=== PATIENT | female | born 1945 | race Caucasian/White ===

== ENCOUNTER 2024-04-02 16:46 | Emergency (ER) | payer OTHER ==
[~2024-04-02] VITALS: Ht 160 cm; Wt 113.4 kg
[~2024-04-02 16:46] MED LIST: ACET325 PO; ALBU90OI INH; ALLO100 PO; ASPI81CH PO; ATOR80 PO; DOCUZEN 8.6-501 EACH PO; ENTRESTO 49 MG1 EACH PO; FURO20 PO; GABA300 PO; LEVOTHYROXINE PO; MIRALAX17 GM PO; OMEP20ER PO; SERT50 PO; XARELTO20 MG PO
[2024-04-02 17:17] LABS: BASOPHILS ABSOLUTE AUTO 0.06 K/mm3 (0.00-0.23); BASOPHILS PERCENT AUTO 1 % (0-2); EOSINOPHILS ABSOLUTE AUTO 0.14 K/mm3 (0.00-0.68); EOSINOPHILS PERCENT AUTO 3 % (0-6); Hematocrit 44.7 % (33.0-51.0); Hemoglobin 14.5 g/dL (11.5-16.0); IMMATURE GRAN ABSOLUTE AUTO 0.01 K/mm3 (0.00-0.10); IMMATURE GRAN PERCENT AUTO 0 % (0-1); LYMPHOCYTES ABSOLUTE AUTO 1.49 K/mm3 (0.84-5.20); LYMPHOCYTES PERCENT AUTO 27 % (21-46); MONOCYTES ABSOLUTE AUTO 0.54 K/mm3 (0.16-1.47); MONOCYTES PERCENT AUTO 10 % (4-13); Mean Corpuscular HGB 27.4 pg (26.0-34.0); Mean Corpuscular HGB Conc 32.4 g/dL (31.5-36.5); Mean Corpuscular Volume 84 fL (80-100); Mean Platelet Volume 9.4 fL (9.1-12.4); NEUTROPHILS ABSOLUTE AUTO 3.29 K/mm3 (1.96-9.15); NEUTROPHILS PERCENT AUTO 60 % (41-73); Platelet Count 274 K/mm3 (150-400); RDW Coefficient Variation 15.2 % (11.7-14.2); RDW Standard Deviation 46.5 fL (35.1-46.3); White Blood Cell Count 5.53 K/mm3 (4.00-11.30)
[2024-04-02 17:44] LABS: Magnesium, Blood 1.9 mg/dL (1.6-2.4)
[2024-04-02] MEDS ORDERED: METOPROLOL SUCC25 MG PO (17:44)
[2024-04-02] MEDS ORDERED: METOPROLOL TART25 MG PO (17:44)
[2024-04-02 17:47] LABS: Albumin, Blood 3.6 g/dL (3.4-5.0); Albumin/Globulin Ratio 0.8 (0.8-1.8); Bilirubin, Total 0.7 mg/dL (0.1-1.0); Bun/Creatinine Ratio 20.1 (12.0-20.0); Creatinine, Blood 0.99 mg/dL (0.40-1.00); Globulin, Blood 4.6 g/dL (2.2-4.0); Potassium, Blood 4.4 mmol/L (3.5-5.5); Thyroid Stimulating Hormone 21.9 uIU/mL (0.360-4.800); Total Protein, Blood 8.2 g/dL (6.4-8.2)
[2024-04-02 18:25] LABS: Free Thyroxine 1.09 ng/dL (0.70-1.60)
[2024-04-02 18:27] LABS: Triiodothyronine, Free 1.8 pg/mL (2.18-3.98)
[2024-04-02] MEDS ORDERED: Metoprolol Tartrate 25 MG Tab PO ONE (19:05)
[2024-04-02] MEDS ORDERED: Metoprolol Tartrate 1 MG/ML 5 ML VIAL IV ONE ×2 (19:05→20:15)
[2024-04-02] MEDS ORDERED: Furosemide 10 MG / ML 2ML Vial IV ONE (20:15)
[2024-04-02] MEDS ORDERED: Digoxin 0.25 MG/ML 2ML Amp IV ONE (21:55)
[2024-04-03 00:15] VITALS: BP 104/61
== END 2024-04-03 00:23 | disposition short-term general hospital (02) ==
LOC: ER 16:46
PROVIDERS: Physician Assistant; Student in an Organized Health Care Education/Training Program
DX: I47.19 Other supraventricular tachycardia (principal); I49.5 Sick sinus syndrome; I44.30 Unspecified atrioventricular block; E78.5 Hyperlipidemia, unspecified; E03.9 Hypothyroidism, unspecified; G47.33 Obstructive sleep apnea (adult) (pediatric); I12.9 Hypertensive chronic kidney disease with stage 1 through stage 4 chronic kidney disease, or unspecified chronic kidney disease; N18.30 Chronic kidney disease, stage 3 unspecified; Z87.891 Personal history of nicotine dependence; Z79.899 Other long term (current) drug therapy; Z88.0 Allergy status to penicillin; Z88.2 Allergy status to sulfonamides; Z88.1 Allergy status to other antibiotic agents
CPT/HCPCS: 71046; 80053; 83735; 83880; 84439; 84443; 84481; 84484; 85025; 93005; 93010; 96374; 96375; 96376; 99285-25; A9270; J1940

== ENCOUNTER 2024-04-18 16:16 | Emergency (ER) | payer OTHER ==
[~2024-04-18] VITALS: Ht 160 cm; Wt 113.4 kg
[~2024-04-18 16:16] MED LIST changes: +METOPROLOL SUCC25 MG PO; +METOPROLOL TART25 MG PO
[2024-04-18 17:08] LABS: BASOPHILS ABSOLUTE AUTO 0.05 K/mm3 (0.00-0.23); BASOPHILS PERCENT AUTO 1 % (0-2); EOSINOPHILS ABSOLUTE AUTO 0.17 K/mm3 (0.00-0.68); EOSINOPHILS PERCENT AUTO 3 % (0-6); Hematocrit 44.7 % (33.0-51.0); Hemoglobin 14.3 g/dL (11.5-16.0); IMMATURE GRAN ABSOLUTE AUTO 0.01 K/mm3 (0.00-0.10); IMMATURE GRAN PERCENT AUTO 0 % (0-1); LYMPHOCYTES ABSOLUTE AUTO 1.57 K/mm3 (0.84-5.20); LYMPHOCYTES PERCENT AUTO 27 % (21-46); MONOCYTES ABSOLUTE AUTO 0.46 K/mm3 (0.16-1.47); MONOCYTES PERCENT AUTO 8 % (4-13); Mean Corpuscular Volume 85 fL (80-100); NEUTROPHILS ABSOLUTE AUTO 3.56 K/mm3 (1.96-9.15); NEUTROPHILS PERCENT AUTO 61 % (41-73); Platelet Count 208 K/mm3 (150-400); RDW Coefficient Variation 16.1 % (11.7-14.2); RDW Standard Deviation 49.1 fL (35.1-46.3); Red Blood Cell Count 5.29 M/mm3 (3.80-5.20); White Blood Cell Count 5.82 K/mm3 (4.00-11.30)
[2024-04-18 17:37] LABS: Albumin, Blood 3.8 g/dL (3.4-5.0); Albumin/Globulin Ratio 0.8 (0.8-1.8); Bilirubin, Total 0.7 mg/dL (0.1-1.0); Bun/Creatinine Ratio 18.8 (12.0-20.0); Calcium, Blood 9.6 mg/dL (8.5-10.1); Creatinine, Blood 0.96 mg/dL (0.40-1.00); Globulin, Blood 4.9 g/dL (2.2-4.0); Potassium, Blood 4.3 mmol/L (3.5-5.5); Total Protein, Blood 8.7 g/dL (6.4-8.2)
[2024-04-18] MEDS ORDERED: Metoprolol Tartrate 1 MG/ML 5 ML VIAL IV ONE (19:35)
[2024-04-18 20:15] VITALS: BP 126/88
== END 2024-04-18 20:30 | disposition home or self-care (01) ==
LOC: ER 16:16
PROVIDERS: Physician Assistant
DX: I48.91 Unspecified atrial fibrillation (principal); I12.9 Hypertensive chronic kidney disease with stage 1 through stage 4 chronic kidney disease, or unspecified chronic kidney disease; N18.30 Chronic kidney disease, stage 3 unspecified; G47.33 Obstructive sleep apnea (adult) (pediatric); E78.5 Hyperlipidemia, unspecified; E03.9 Hypothyroidism, unspecified; Z87.891 Personal history of nicotine dependence; Z88.0 Allergy status to penicillin; Z88.2 Allergy status to sulfonamides; Z88.1 Allergy status to other antibiotic agents; Z95.0 Presence of cardiac pacemaker; Z79.01 Long term (current) use of anticoagulants; Z79.890 Hormone replacement therapy; Z79.899 Other long term (current) drug therapy
CPT/HCPCS: 71046; 80053; 83690; 84484; 85025; 93005; 93010; 96374; 99284-25

== ENCOUNTER 2024-06-12 16:23 | Inpatient (IN) | payer OTHER ==
[~2024-06-12] VITALS: Ht 160 cm; Wt 117.0 kg
[2024-06-12 17:06] LABS: BASOPHILS ABSOLUTE AUTO 0.05 K/mm3 (0.00-0.23); BASOPHILS PERCENT AUTO 1 % (0-2); EOSINOPHILS ABSOLUTE AUTO 0.11 K/mm3 (0.00-0.68); EOSINOPHILS PERCENT AUTO 2 % (0-6); Hematocrit 43.8 % (33.0-51.0); Hemoglobin 14.1 g/dL (11.5-16.0); IMMATURE GRAN ABSOLUTE AUTO 0.02 K/mm3 (0.00-0.10); IMMATURE GRAN PERCENT AUTO 0 % (0-1); LYMPHOCYTES ABSOLUTE AUTO 1.72 K/mm3 (0.84-5.20); LYMPHOCYTES PERCENT AUTO 26 % (21-46); MONOCYTES ABSOLUTE AUTO 0.75 K/mm3 (0.16-1.47); MONOCYTES PERCENT AUTO 11 % (4-13); Mean Corpuscular HGB 26.7 pg (26.0-34.0); Mean Corpuscular HGB Conc 32.2 g/dL (31.5-36.5); Mean Corpuscular Volume 83 fL (80-100); Mean Platelet Volume 9.1 fL (9.1-12.4); NEUTROPHILS ABSOLUTE AUTO 3.92 K/mm3 (1.96-9.15); NEUTROPHILS PERCENT AUTO 60 % (41-73); Platelet Count 239 K/mm3 (150-400); RDW Coefficient Variation 15.4 % (11.7-14.2); RDW Standard Deviation 46.6 fL (35.1-46.3); Red Blood Cell Count 5.29 M/mm3 (3.80-5.20); White Blood Cell Count 6.57 K/mm3 (4.00-11.30)
[2024-06-12 17:31] LABS: Albumin, Blood 3.3 g/dL (3.4-5.0); Albumin/Globulin Ratio 0.7 (0.8-1.8); Bilirubin, Total 0.5 mg/dL (0.1-1.0); Bun/Creatinine Ratio 21.8 (12.0-20.0); Calcium, Blood 9.6 mg/dL (8.5-10.1); Creatinine, Blood 1.01 mg/dL (0.40-1.00); Globulin, Blood 4.6 g/dL (2.2-4.0); Potassium, Blood 4.2 mmol/L (3.5-5.5); Total Protein, Blood 7.9 g/dL (6.4-8.2)
[2024-06-12 20:12] LABS: Thyroid Stimulating Hormone 1.34 uIU/mL (0.360-4.800)
[2024-06-12] MEDS ORDERED: Metoprolol Tartrate 1 MG/ML 5 ML VIAL IV ONE ×2 (20:30→22:35)
[2024-06-13] MEDS ORDERED: Acetaminophen 325 MG TABLET PO PRN (01:35)
[2024-06-13] MEDS ORDERED: Albuterol HFA200 ACT/6.7 GM INH INH PRN ×2 (01:45→18:47)
[2024-06-13 05:34] VITALS: BP 124/89
[2024-06-13] MEDS ORDERED: Omeprazole 20 MG CapCR PO SCH (06:00)
[2024-06-13] MEDS ORDERED: Levothyroxine Sodium 0.137 MG Tab PO SCH (06:00)
--- NOTE | 2024-06-13 06:36 | NUR ---
0610 Took over care of this pt from KEKE Barajas. Pt dressed into gown and purewick placed. Pt given morning medications and a glass of water. Pt swallows pills whole without issue. Pt feeling weak, so will be a 1-2 person assist at this time. Pt normally walks at home. Bed in low position and pt has her call light within her reach. Will continue to monitor.
[2024-06-13 07:29] VITALS: BP 136/90
[2024-06-13] MEDS ORDERED: Metoprolol Succinate 25 MG TABCR PO SCH (09:00)
[2024-06-13] MEDS ORDERED: Enoxaparin 40 MG/0.4 ML SYR SC SCH (09:00)
[2024-06-13] MEDS ORDERED: Rivaroxaban 10 MG Tab PO SCH (09:00)
[2024-06-13] MEDS ORDERED: Sertraline HCl 50 MG Tab PO SCH (09:00)
[2024-06-13] MEDS ORDERED: Sacubitril/Valsartan 49 MG/51 MG Tab PO SCH (09:00)
[2024-06-13] MEDS ORDERED: Allopurinol 100 MG Tab PO SCH (09:00)
[2024-06-13] MEDS ORDERED: Metoprolol Succinate 25 MG TABCR PO ONE (11:00)
[2024-06-13 11:58] VITALS: BP 125/92
[2024-06-13 15:00] VITALS: BP 122/66
[2024-06-13] MEDS ORDERED: dilTIAZem HCL 120 MG CAP.CD PO SCH (17:00)
--- NOTE | 2024-06-13 17:28 | NUR ---
SHIFT SUMMARY PT A&OX4, TACHYCARDIC, AMB W/ SBA, TOLERATING PO, VOIDING, AND DENIED PAIN. DR. CHILDRESS ROUNDED ON PT AND EMAR UPDATED W/ NEW ORDERS. NO OTHER ACUTE CHANGES THIS SHIFT. CALL LIGHT WITHIN REACH AND PT ABLE TO MAKE NEEDS KNOWN.
[2024-06-13 19:57] VITALS: BP 114/71
[2024-06-13] MEDS ORDERED: Atorvastatin 40 MG Tab PO SCH (21:00)
[2024-06-13] MEDS ORDERED: Gabapentin 300 MG Cap PO SCH (21:00)
[2024-06-13] MEDS ORDERED: Metoprolol Succinate 50 MG TABCR PO SCH (21:00)
[2024-06-13] MEDS ORDERED: Apixaban 5 MG Tab PO SCH (21:00)
[2024-06-14 03:55] VITALS: BP 105/73
--- NOTE | 2024-06-14 06:18 | NUR ---
Shift Summary Pt tachcardic t/o the night, no c/o of chest pain, nausea or dizzyness. She wore a CPAP as she does at home through most of the night while asleep. Purewick in place draining urine as pt says she is incontinent when she stands up. She is AOx4 and remained in bed t/o the shift. She is on cont. O2 monitoring per CPAP protocol, no desaturation events.
[2024-06-14 07:38] VITALS: BP 116/68
[2024-06-14 08:47] LABS: BASOPHILS ABSOLUTE AUTO 0.06 K/mm3 (0.00-0.23); BASOPHILS PERCENT AUTO 1 % (0-2); EOSINOPHILS ABSOLUTE AUTO 0.15 K/mm3 (0.00-0.68); EOSINOPHILS PERCENT AUTO 3 % (0-6); Hematocrit 46.2 % (33.0-51.0); Hemoglobin 14.3 g/dL (11.5-16.0); IMMATURE GRAN ABSOLUTE AUTO 0.01 K/mm3 (0.00-0.10); IMMATURE GRAN PERCENT AUTO 0 % (0-1); LYMPHOCYTES ABSOLUTE AUTO 1.44 K/mm3 (0.84-5.20); LYMPHOCYTES PERCENT AUTO 27 % (21-46); MONOCYTES ABSOLUTE AUTO 0.63 K/mm3 (0.16-1.47); MONOCYTES PERCENT AUTO 12 % (4-13); Mean Corpuscular HGB 26.1 pg (26.0-34.0); Mean Corpuscular Volume 84 fL (80-100); Mean Platelet Volume 9.2 fL (9.1-12.4); NEUTROPHILS PERCENT AUTO 58 % (41-73); Platelet Count 231 K/mm3 (150-400); RDW Coefficient Variation 15.4 % (11.7-14.2); RDW Standard Deviation 47.6 fL (35.1-46.3); Red Blood Cell Count 5.48 M/mm3 (3.80-5.20); White Blood Cell Count 5.39 K/mm3 (4.00-11.30)
[2024-06-14] MEDS ORDERED: Metoprolol Succinate 50 MG TABCR PO SCH ×2 (09:00)
[2024-06-14 09:14] LABS: Albumin, Blood 3.7 g/dL (3.4-5.0); Albumin/Globulin Ratio 0.8 (0.8-1.8); Bilirubin, Total 0.8 mg/dL (0.1-1.0); Bun/Creatinine Ratio 16.7 (12.0-20.0); Calcium, Blood 9.4 mg/dL (8.5-10.1); Creatinine, Blood 1.08 mg/dL (0.40-1.00); Globulin, Blood 4.6 g/dL (2.2-4.0); Phosphorus, Blood 3.7 mg/dL (2.5-4.9); Potassium, Blood 4.2 mmol/L (3.5-5.5); Total Protein, Blood 8.3 g/dL (6.4-8.2)
--- NOTE | 2024-06-14 17:31 | NUR ---
SHIFT SUMMARY PT WORKED W/ PHYSICAL THERAPY THIS SHIFT, SEE THERAPY NOTE. NO OTHER ACUTE CHANGES. CALL LIGHT WITHIN REACH AND PT ABLE TO MAKE NEEDS KNOWN.
[2024-06-14 18:02] VITALS: BP 113/71
[2024-06-14 20:38] VITALS: BP 116/62
[2024-06-14] MEDS ORDERED: Miconazole Nitrate 2% 85 GM PWD TOP SCH (21:00)
[2024-06-15 02:08] VITALS: BP 102/62
--- NOTE | 2024-06-15 06:17 | NUR ---
NO ACUTE CHANGES DURING SHIFT. HEART RATE IMPROVED, IN THE 70S. STABLE. PLEASANT INTERACTIONS. SLEPT MOST OF SHIFT. WOKE UP IN AM WITH HEADACHE, PRN PAIN MED ADMINISTERED.
[2024-06-15 07:34] VITALS: BP 99/56
[2024-06-15] MEDS ORDERED: Calcium Carbonate 500 MG Tab Chew PO ONE (12:40)
[2024-06-15] MEDS ORDERED: Calcium Carbonate 500 MG Tab Chew PO PRN (12:40)
[2024-06-15] MEDS ORDERED: NS 500 ML IV SCH (14:00)
[2024-06-15 14:17] VITALS: BP 133/88
[2024-06-15] MEDS ORDERED: dilTIAZem HCL 120 MG CAP.CD PO SCH (14:30)
--- NOTE | 2024-06-15 14:31 | NUR ---
DR. REID DISCUSSING D/C FOR PATIENT DUE TO RATE CONTROLLED AND PACER CLINIC ISN'T GOING TO ADJUST HER PACER MAKER. DR. REID NOTIFIED THAT PATIENT'S HR HAS BEEN SUSTAINING IN THE (ONE TEENS) AND JUMPING AROUND FROM HIGH 90'S TO 120. PATIENT EXPRESSES CONCERNS WITH THIS AND DOESN'T FEEL COMFORTABLE GOING HOME. PER DR. REID RECHECK BLOOD PRESSURE; BP REPORTED TO DR. REID OF 133/88 AND PULSE 117. PER VITAL SIGNS DR. REID ADVISED TO GIVE DILTIAZEM NOW DUE TO MISSED DOSE THIS AM DUE TO SBP BEING LESS THAN 100. ORDERS ADJUSTED.
[2024-06-15 15:06] VITALS: BP 106/62
[2024-06-15] MEDS ORDERED: METO100ER PO (15:13)
[2024-06-15] MEDS ORDERED: DILT120 PO (15:16)
--- NOTE | 2024-06-15 17:29 | NUR ---
SHIFT SUMMARY: PATIENT IS A&OX4, MAKES HER NEEDS KNOWN, AND PLEASANT AND COOPERATIVE WITH CARE. SHE IS A 1 PERSON ASSIST TO THE BATHROOM; SHE HAS BEEN CONTINENT. HER RATE WAS CONTROLLED THIS MORNING, BUT BP WAS LOW. EARLY AFTERNOON RATE HANGING OUT 99-120;JUMPING AROUND EVEN WITH REST. SEE OTHER NURSE NOTE REGUARDING AND CONTACT WITH DR. REID. POST DILTIAZEM ADMINISTRATION PATIENT'S HEARTRATE CONTINUES TO BE THE SAME. PATIENT IS REQUESTING THAT DR. REID GET IN TOUCH WITH THE PROVIDER WHO PLACED HER PACER MAKER. PATIENT WOULD FEEL COMFORTABLE GETTING A SECOND OPINION. SHE IS IN BED, CALL LIGHT WITHIN REACH, NO SIGNS OR SYMPTOMS OF DISTRESS, PLAN OF CARE ONGOING.
[2024-06-15 19:48] VITALS: BP 103/61
[2024-06-16 03:40] VITALS: BP 123/77
[2024-06-16 05:44] LABS: Albumin, Blood 3.2 g/dL (3.4-5.0); Albumin/Globulin Ratio 0.8 (0.8-1.8); Bilirubin, Total 0.6 mg/dL (0.1-1.0); Bun/Creatinine Ratio 19.2 (12.0-20.0); Calcium, Blood 9.1 mg/dL (8.5-10.1); Creatinine, Blood 1.04 mg/dL (0.40-1.00); Potassium, Blood 3.9 mmol/L (3.5-5.5); Total Protein, Blood 7.2 g/dL (6.4-8.2)
--- NOTE | 2024-06-16 06:36 | NUR ---
BP PARAMETERS WNL TO TAKE DILTIAZEM. HEART RATE REMAINED <90. NO ACUTE CHANGES
[2024-06-16 08:04] VITALS: BP 101/63
[2024-06-16] MEDS ORDERED: ELIQUIS5 M2 PO (12:34)
--- NOTE | 2024-06-16 12:36 | NUR ---
SPOKE WITH DR. REID REGUARDING ELIQUID AND DOSING. PER DR. REID PATIENT IS TO TAKE ELIQUIS 5 MG TWICE A DAY AND SHE ALREADY FAXED THE PRESCRIPTIONS TO [facility].
--- NOTE | 2024-06-16 13:07 | NUR ---
DISCHARGE NOTE: DISCUSSED DISCHARGE WITH PATIENT. PATIENT GOT DRESSED AND GOT READY; COLLECTED BELONGINGS WITH ASSISTANCE FROM THE APPARATUS OPERATOR. TELE AND IV WAS REMOVED. PATIENT CALLED HER DAUGHTER TO COME PICK HER UP. PATIENT WHEELED DOWN TO [facility]. NO SIGNS OR SYMPTOMS OF DISTRESS DURING DISCHARGE.
== END 2024-06-16 13:00 | disposition home health service (06) | DRG 201 ==
LOC: ER 16:23 → MEDS 16:24 → ERHOLD 16:24 → MEDS 06-13 05:21 → ENPENDDIS 06-16 08:50 → MEDS 06-16 13:00
PROVIDERS: Emergency Medicine; ADMIT Family Medicine
DX: I48.0 Paroxysmal atrial fibrillation (principal); E66.01 Morbid (severe) obesity due to excess calories; G47.33 Obstructive sleep apnea (adult) (pediatric); E03.9 Hypothyroidism, unspecified; E78.5 Hyperlipidemia, unspecified; I12.9 Hypertensive chronic kidney disease with stage 1 through stage 4 chronic kidney disease, or unspecified chronic kidney disease; M10.9 Gout, unspecified; Z96.649 Presence of unspecified artificial hip joint; N18.30 Chronic kidney disease, stage 3 unspecified; K44.0 Diaphragmatic hernia with obstruction, without gangrene; R54 Age-related physical debility; F41.0 Panic disorder [episodic paroxysmal anxiety]; Z90.710 Acquired absence of both cervix and uterus; Z98.84 Bariatric surgery status; Z79.01 Long term (current) use of anticoagulants; Z88.2 Allergy status to sulfonamides; Z88.0 Allergy status to penicillin; Z88.1 Allergy status to other antibiotic agents; Z79.899 Other long term (current) drug therapy; Z95.0 Presence of cardiac pacemaker; Z79.890 Hormone replacement therapy; Z87.891 Personal history of nicotine dependence; Z90.49 Acquired absence of other specified parts of digestive tract; Z98.890 Other specified postprocedural states; Z68.42 Body mass index [BMI] 45.0-49.9, adult
CPT/HCPCS: 36415; 71046; 80053; 83690; 83735; 84100; 84443; 84484; 85025; 85379; 93005; 93010; 94660; 94760; 94762; 96374; 96376; 97110; 97116; 97162; 97530; 99285-25; A9270; G0378

== ENCOUNTER 2025-02-21 19:51 | Emergency (ER) | payer OTHER ==
[~2025-02-21] VITALS: Ht 162.6 cm; Wt 111.1 kg
[~2025-02-21 19:51] MED LIST changes: +DILT120 PO; +ELIQUIS5 M2 PO; +METO100ER PO
[2025-02-21] MEDS ORDERED: Ondansetron HCl 2 MG / ML 2ML Vial IV PRN (20:05)
[2025-02-21 20:10] LABS: BASOPHILS ABSOLUTE AUTO 0.05 K/mm3 (0.00-0.23); BASOPHILS PERCENT AUTO 1 % (0-2); EOSINOPHILS ABSOLUTE AUTO 0.13 K/mm3 (0.00-0.68); EOSINOPHILS PERCENT AUTO 2 % (0-6); Hematocrit 36.1 % (33.0-51.0); Hemoglobin 11.7 g/dL (11.5-16.0); IMMATURE GRAN ABSOLUTE AUTO 0.02 K/mm3 (0.00-0.10); IMMATURE GRAN PERCENT AUTO 0 % (0-1); LYMPHOCYTES ABSOLUTE AUTO 1.53 K/mm3 (0.84-5.20); LYMPHOCYTES PERCENT AUTO 26 % (21-46); MONOCYTES ABSOLUTE AUTO 0.64 K/mm3 (0.16-1.47); MONOCYTES PERCENT AUTO 11 % (4-13); Mean Corpuscular HGB 27.4 pg (26.0-34.0); Mean Corpuscular HGB Conc 32.4 g/dL (31.5-36.5); Mean Corpuscular Volume 85 fL (80-100); Mean Platelet Volume 9.5 fL (9.1-12.4); NEUTROPHILS ABSOLUTE AUTO 3.55 K/mm3 (1.96-9.15); NEUTROPHILS PERCENT AUTO 60 % (41-73); Platelet Count 176 K/mm3 (150-400); RDW Coefficient Variation 16.2 % (11.7-14.2); RDW Standard Deviation 50.4 fL (35.1-46.3); Red Blood Cell Count 4.27 M/mm3 (3.80-5.20); White Blood Cell Count 5.92 K/mm3 (4.00-11.30)
[2025-02-21 20:26] LABS: International Normalized Ratio 1.49; Prothrombin Time Results 15.5 Sec (9.7-11.5)
[2025-02-21 20:28] LABS: Albumin, Blood 2.7 g/dL (3.4-5.0); Albumin/Globulin Ratio 0.9 (0.8-1.8); Bilirubin, Total 0.7 mg/dL (0.1-1.0); Bun/Creatinine Ratio 13.1 (12.0-20.0); Creatinine, Blood 0.69 mg/dL (0.40-1.00); Potassium, Blood 3.2 mmol/L (3.5-5.5); Total Protein, Blood 5.7 g/dL (6.4-8.2)
[2025-02-21 21:15] VITALS: BP 134/67
== END 2025-02-21 21:30 | disposition home or self-care (01) ==
LOC: ER 19:51
PROVIDERS: Student in an Organized Health Care Education/Training Program
DX: R00.2 Palpitations (principal); E03.9 Hypothyroidism, unspecified; I12.9 Hypertensive chronic kidney disease with stage 1 through stage 4 chronic kidney disease, or unspecified chronic kidney disease; N18.30 Chronic kidney disease, stage 3 unspecified; Z88.0 Allergy status to penicillin; Z88.2 Allergy status to sulfonamides; Z88.1 Allergy status to other antibiotic agents; Z79.890 Hormone replacement therapy; Z79.899 Other long term (current) drug therapy; Z79.01 Long term (current) use of anticoagulants; Z95.0 Presence of cardiac pacemaker; Z87.891 Personal history of nicotine dependence
CPT/HCPCS: 71046; 80053; 84484; 85025; 85610; 85730; 93005; 93010; 99285-25

== ENCOUNTER 2025-04-20 08:41 | Day surgery (SDC) | payer OTHER ==
[~2025-04-20] VITALS: Ht 160 cm; Wt 106.8 kg
[2025-04-20] MEDS ORDERED: propofoL 50 ML IV ONE (09:23)
[2025-04-20] MEDS ORDERED: Lactated Ringer's 1,000 ML IV ONE ×2 (09:34→15:13)
[2025-04-20 15:23] VITALS: BP 113/62
== END 2025-04-20 09:04 | disposition home or self-care (01) ==
LOC: ORSCSDS 08:41
PROVIDERS: Internal Medicine Gastroenterology
PROC: 0DBK8ZX Excision of Ascending Colon, Via Natural or Artificial Opening Endoscopic, Diagnostic (ICD-10-PCS; principal; 2025-04-20 10:15)
DX: Z12.11 Encounter for screening for malignant neoplasm of colon (principal); Z86.0100 Personal history of colon polyps, unspecified; D12.2 Benign neoplasm of ascending colon; K57.90 Diverticulosis of intestine, part unspecified, without perforation or abscess without bleeding; Z98.84 Bariatric surgery status; Z95.0 Presence of cardiac pacemaker; I48.91 Unspecified atrial fibrillation; Z53.9 Procedure and treatment not carried out, unspecified reason; G47.33 Obstructive sleep apnea (adult) (pediatric); R68.81 Early satiety; E78.5 Hyperlipidemia, unspecified; I12.9 Hypertensive chronic kidney disease with stage 1 through stage 4 chronic kidney disease, or unspecified chronic kidney disease; N18.30 Chronic kidney disease, stage 3 unspecified; Z79.01 Long term (current) use of anticoagulants; Z79.899 Other long term (current) drug therapy
CPT/HCPCS: 88305; J2704; J7120